=== PATIENT | male | born 1990 | race Caucasian/White ===

== ENCOUNTER → 2020-11-25 | Outpatient (CLI) | payer BC, SELFPAY | END | disposition home or self-care (01) | PROVIDERS: Referring Provider Family Medicine; Visit Provider Family Medicine | DX: Z20.828 Contact with and (suspected) exposure to other viral communicable diseases (principal) | CPT/HCPCS: 87635; U0002; U0003 ==

== ENCOUNTER → 2022-08-23 | Outpatient (CLI) | payer BC, SELFPAY | END | disposition home or self-care (01) | LOC: SL 13:26 | PROVIDERS: PCP Family Medicine; Referring Provider Family Medicine; Visit Provider Family Medicine | DX: G47.30 Sleep apnea, unspecified (principal) | CPT/HCPCS: 95806 ==

== ENCOUNTER → 2022-11-08 | Outpatient (CLI) | payer BC, SELFPAY ==
--- NOTE | 2022-11-08 15:03 | ECHOD_ITS ---
Reason For Study: SLEEP APNEA Procedure This was a 2D Doppler, Color Flow transthoracic echocardiogram. The study was technically difficult. Definity deferred. Exam performed in department. Left Ventricle Based upon the 2D echocardiographic images obtained there appears to be grossly normal left ventricular size, wall motion, and systolic function. The estimated ejection fraction is 55 %. No evidence for diastolic dysfunction. Right Ventricle Based upon the 2D echocardiographic images obtained appears to be grossly normal right ventricular size and systolic function. Atria Normal left atrium. Normal right atrium. No doppler evidence for ASD. Mitral Valve There is no mitral annular calcification. Normal mitral valve. Trivial mitral valve insufficiency. Tricuspid Valve Normal tricuspid valve. Trivial tricuspid valve insufficiency. Right ventricular systolic pressure estimated to be 25 mmHg. Aortic Valve Trisinus/trileaflet aortic valve. Normal aortic valve. Pulmonic Valve The pulmonic valve is not well visualized. Great Vessels Normal sized aortic root. Pericardium/Pleural No pericardial effusion. MMode/2D Measurements & Calculations Ao root diam: 3.6 cm LAV(MOD-bp): 57.7 ml LVAd ap4: 33.7 cm2 LAV(MOD-bp) Indexed: 22.8 ml/m2 LVLd ap4: 9.1 cm LAV(MOD-sp2): 52.3 ml EDV(MOD-sp4): 105.0 ml LAV(MOD-sp4): 61.4 ml EDV(sp4-el): 106.7 ml LVAs ap4: 20.6 cm2 LVLs ap4: 7.2 cm ESV(MOD-sp4): 52.4 ml ESV(sp4-el): 50.0 ml EF(MOD-sp4): 50.1 % EF(sp4-el): 53.1 % SV(MOD-sp4): 52.6 ml SV(sp4-el): 56.7 ml LA A4 area: 21.3 cm2 LA dimension(2D): 5.0 cm RA A4 area: 19.1 cm2 Time Measurements MV dec time: 0.13 sec Doppler Measurements & Calculations MV E max nain: 70.3 cm/sec Lat Peak E' Nain: 14.7 cm/sec Med Peak E' Nain: 14.1 cm/sec MV A max nain: 53.4 cm/sec E/E' lat: 4.8 E/E' med: 5.0 MV E/A: 1.3 MV V2 max: 80.7 cm/sec MV dec slope: 559.0 cm/sec2 Ao V2 max: 114.7 cm/sec MV max P.6 mmHg Ao max P.3 mmHg MV V2 mean: 53.2 cm/sec Ao V2 mean: 82.9 cm/sec MV mean P.3 mmHg Ao mean P.0 mmHg MV V2 VTI: 14.8 cm Ao V2 VTI: 19.5 cm AV (velocity ratio): 0.76 LV V1 max: 84.4 cm/sec PA V2 max: 89.8 cm/sec TR max nain: 233.7 cm/sec LV V1 max P.9 mmHg PA V2 mean: 67.4 cm/sec TR max P.8 mmHg LV V1 mean P.7 mmHg LV V1 mean: 60.4 cm/sec LV V1 VTI: 14.8 cm ECHO/Echo Complete Interpretation Summary The study was technically difficult. Based upon the 2D echocardiographic images obtained there appears to be grossly normal left ventricular size, wall motion, and systolic function. The estimated ejection fraction is 55 %. Trivial mitral valve insufficiency. Trivial tricuspid valve insufficiency. Right ventricular systolic pressure estimated to be 25 mmHg. No evidence for diastolic dysfunction. Ordering Physician: Gorge Munguia Referring Physician: Gorge Munguia Performed By: Verenice Sepulveda RCS
== END | disposition home or self-care (01) ==
LOC: CVS 15:01
PROVIDERS: PCP Family Medicine; Referring Provider Family Medicine; Visit Provider Family Medicine
DX: G47.31 Primary central sleep apnea (principal); G47.33 Obstructive sleep apnea (adult) (pediatric)
CPT/HCPCS: 93306

== ENCOUNTER → 2023-01-02 | Outpatient (CLI) | payer BC, SELFPAY | END | disposition home or self-care (01) | LOC: SL 20:17 | PROVIDERS: PCP Family Medicine; Referring Provider Family Medicine; Visit Provider Family Medicine | DX: G47.33 Obstructive sleep apnea (adult) (pediatric) (principal); G47.31 Primary central sleep apnea | CPT/HCPCS: 95811 ==

== ENCOUNTER → 2023-03-12 | Outpatient (CLI) | payer BC, SELFPAY | END | disposition home or self-care (01) | LOC: SL 13:02 | PROVIDERS: PCP Family Medicine; Visit Provider Internal Medicine Critical Care Medicine | DX: G47.33 Obstructive sleep apnea (adult) (pediatric) (principal) ==